=== PATIENT | male | born 1945 | race Two or more races ===

== ENCOUNTER → 2024-05-06 | Outpatient (CLI) | payer MEDICARE, SELFPAY ==
[2024-05-06 13:27] LABS: Glucose Estimated Average 100 mg/dL (80-131); Hemoglobin A1C 5.1 % Hgb (4.8-6.0)
[2024-05-06 13:32] LABS: Alanine Aminotransferase 17 U/L (10-49); Albumin, Serum 4.4 gm/dL (3.4-4.8); Albumin/Globulin Ratio 1.8 (1.2-2.2); Alkaline Phosphatase 74 U/L (46-116); Anion Gap 5 (7-16); Aspartate Amino Transferase 21 U/L (0-34); BUN/Creatinine Ratio 12 Ratio (12-20); Bilirubin,Total 0.9 mg/dL (0.3-1.2); Blood Urea Nitrogen 12 mg/dL (9-23); Calcium 9.5 mg/dL (8.3-10.6); Calcium (Corrected) 9.5 mg/dL (8.5-10.1); Carbon Dioxide 28.6 mMol/L (20.0-31.0); Chloride 107 mMol/L (98-107); Globulin 2.5 gm/dL (2.3-3.5); Glucose 95 mg/dL (74-106); Osmolality,Calculated 280 (275-295); Potassium 4.7 mMol/L (3.4-5.1); Sodium 141 mMol/L (136-145); Total Protein 6.9 gm/dL (5.7-8.2); eGFR > 60 See Note
[2024-05-06 13:36] LABS: Vitamin B12 506 pg/mL (211-911); Vitamin D 25 Hydroxy Total 24.6 ng/mL (7.3-40.2)
== END | disposition home or self-care (01) ==
PROVIDERS: PCP Internal Medicine; Referring Provider Psychiatry & Neurology Neurology; Visit Provider Psychiatry & Neurology Neurology
DX: R20.2 Paresthesia of skin (principal); E53.8 Deficiency of other specified B group vitamins; E55.9 Vitamin D deficiency, unspecified
CPT/HCPCS: 36415; 80053; 82306; 82607; 83036

== ENCOUNTER → 2025-02-23 | Outpatient (CLI) | payer MEDICARE, SELFPAY ==
--- NOTE | 2025-02-23 17:02 | XR_ITS ---
EXAMINATION: PA lateral chest 2 views TECHNIQUE: Upright PA lateral chest 2 views Date and time: February 23, 2025, 1709 hours, comparison August 14, 2018 INDICATIONS: Coughing beginning 3 days ago. FINDINGS: Mild hyperexpansion Normal heart size Ectatic thoracic aorta. No pneumonia or pulmonary edema Mild osteopenia IMPRESSION: Mild hyperexpansion No pneumonia or pulmonary edema
== END | disposition home or self-care (01) ==
LOC: CDIM 16:51 → SDIM 16:55
PROVIDERS: PCP Internal Medicine; Referring Provider Internal Medicine; Visit Provider Internal Medicine
DX: R05.9 Cough, unspecified (principal)
CPT/HCPCS: 71046